=== PATIENT | male | born 1990 | race Two or more races ===

== ENCOUNTER 2017-08-17 11:56 | Emergency (ER) | payer SELFPAY ==
[~2017-08-17] VITALS: Ht 162.6 cm; Wt 88.0 kg
[2017-08-17] MEDS ORDERED: LIDOCAINE-MPF 1%, 5ML INFIL ONE (12:30)
[2017-08-17] MEDS ORDERED: DIPH,PERTUSS(ACELL),TET VAC/PF 0.5 ML IM-VACC ONE ×2 (12:30→12:38)
[2017-08-17 13:53] VITALS: BP 147/74
== END 2017-08-17 13:58 | disposition home or self-care (01) ==
LOC: ED 12:30
DX: S01.01XA Laceration without foreign body of scalp, initial encounter (principal); X58.XXXA Exposure to other specified factors, initial encounter; Y93.89 Activity, other specified; Y99.8 Other external cause status; Y92.009 Unspecified place in unspecified non-institutional (private) residence as the place of occurrence of the external cause
CPT/HCPCS: 12002; 90471; 90715

== ENCOUNTER 2019-04-11 09:05 | Emergency (ER) | payer SELFPAY ==
[~2019-04-11] VITALS: Ht 162.6 cm; Wt 85.3 kg
[2019-04-11 09:07] VITALS: BP 125/88
[2019-04-11] MEDS ORDERED: ACETAMINOPHEN 500 MG TABLET PO ONE (09:30)
[2019-04-11] MEDS ORDERED: SODIUM CHLORIDE 0.9% 1,000ML IVBOLUS ONE (09:30)
[2019-04-11] MEDS ORDERED: ONDANSETRON 2MG/ML, 2ML IVPush ONE (09:30)
[2019-04-11] MEDS ORDERED: SODIUM CHLORIDE FLUSH 10ML SYR IVF ONE (09:30)
[2019-04-11] MEDS ORDERED: ACETAMINOPHEN 500 MG TABLET ONE (09:37)
[2019-04-11] MEDS ORDERED: ONDANSETRON 2MG/ML, 2ML ONE (09:37)
[2019-04-11 10:20] LABS: RAPID INFLUENZA A Negative (Negative); RAPID INFLUENZA B POSITIVE (Negative)
[2019-04-11] MEDS ORDERED: IBUPROFEN 800 MG TABLET PO ONE (10:30)
[2019-04-11] MEDS ORDERED: IBUPROFEN 800 MG TABLET ONE (10:35)
== END 2019-04-11 11:12 | disposition home or self-care (01) ==
LOC: ED 11:11
DX: J10.1 Influenza due to other identified influenza virus with other respiratory manifestations (principal); R19.7 Diarrhea, unspecified; R11.10 Vomiting, unspecified
CPT/HCPCS: 71046; 87081; 87147; 87400; 87880; 96361; 96374; 99284; J2405; J7030